=== PATIENT | male | born 2000 | race Caucasian/White ===

== ENCOUNTER 2023-12-25 19:32 | Emergency (ER) | payer BC ==
[~2023-12-25] VITALS: Ht 170.2 cm; Wt 99.8 kg
[2023-12-25 21:34] LABS: BASOPHILS # (AUTO) 0.1 K/UL (0.0-0.2); BASOPHILS % (AUTO) 0.6 % (0.0-2.0); DIFFERENTIAL COMMENT 0; EOSINOPHILS # (AUTO) 0.2 K/uL (0.0-0.7); EOSINOPHILS % (AUTO) 1.9 % (0.0-7.0); LYMPHOCYTES # (AUTO) 2.8 K/uL (0.8-4.8); LYMPHOCYTES % (AUTO) 28.8 % (20.5-51.5); MEAN CORPUSCULAR HEMOGLOBIN 30.5 uug (23.8-33.4); MEAN CORPUSCULAR HGB CONC 34 g/dL (32.5-36.3); MEAN CORPUSCULAR VOLUME 89.3 fL (73.0-96.2); MONOCYTES # (AUTO) 1.1 K/uL (0.1-1.30); MONOCYTES % (AUTO) 11.6 % (0.0-11.0); NEUTROPHILS # (AUTO) 5.6 K/uL (1.8-8.9); NEUTROPHILS % (AUTO) 57.1 % (38.5-71.5); PLATELET COUNT (AUTO) 333 K/uL (152-348); RED BLOOD CELL COUNT(AUTO) 4.92 MIL/uL (4.06-5.63); RED CELL DISTRIBUTION WIDTH 14.4 % (12.1-16.2); WHITE BLOOD COUNT (AUTO) 9.8 K/uL (3.6-10.2)
[2023-12-25 21:37] LABS: CALCIUM 8.8 mg/dL (8.5-10.1); POTASSIUM 4.2 mmol/L (3.5-5.1)
[2023-12-25 21:43] LABS: ALBUMIN 3.5 g/dL (3.4-5.0); BILIRUBIN,TOTAL 0.2 mg/dL (0.2-1.0)
[2023-12-25] MEDS ORDERED: PANTOPRAZOLE SODIUM 40 MG TABLET.DR PO ONE (22:02)
[2023-12-25] MEDS ORDERED: OXYCODONE/APAP 5-325 MG TABLET ONE (22:02)
[2023-12-25] MEDS ORDERED: ONDANSETRON ODT 4 MG TAB.RAPDIS ONE (22:02)
[2023-12-25] MEDS ORDERED: DICYCLOMINE HCL LIQ 10 MG/5 ML UDC ONE (22:02)
[2023-12-25] MEDS: OXYCODONE/APAP 5-325 MG TABLET PO ONE (22:07)
[2023-12-25] MEDS: ONDANSETRON ODT 4 MG TAB.RAPDIS SL ONE (22:07)
[2023-12-25] MEDS: DICYCLOMINE HCL LIQ 10 MG/5 ML UDC PO ONE (22:07)
[2023-12-25] MEDS: PANTOPRAZOLE SODIUM 40 MG TABLET.DR PO ONE (22:07)
[2023-12-25] MEDS ORDERED: DICY20TA11 PO (22:57)
[2023-12-25 23:40] VITALS: BP 126/84; TEMP 98; O2SAT 98
== END 2023-12-25 23:41 | disposition home or self-care (01) ==
LOC: ER 19:35
DX: K40.90 Unilateral inguinal hernia, without obstruction or gangrene, not specified as recurrent (principal); G89.29 Other chronic pain; R10.9 Unspecified abdominal pain; Z79.899 Other long term (current) drug therapy
CPT/HCPCS: 36415; 76870; 83690; 85025; A4606; A4663; Q0162